=== PATIENT | female | born 1995 | race Hispanic/Latino ===

== ENCOUNTER → 2018-07-28 | Outpatient (CLI) | payer OTHER ==
--- NOTE | 2018-07-28 11:40 | REP ---
OB ULTRASOUND: Real-time sonographic evaluation of the gravid uterus performed. There is a single living intrauterine gestation, estimated gestational age 33 weeks 0 days based on LMP, EDC 09/15/2018. Today's measurements indicate appropriate growth. BPD 85 mm 34 weeks 2 days, 69th percentile HC 307 mm 34 weeks 1 day, 68th percentile AC 303 mm 34 weeks 2 days, 69th percentile FL 61 mm 31 weeks 6 days, 22nd percentile HC/AC ratio 1.01 within normal range. Estimated weight 2231 grams, 56th percentile. Cervix is closed and measures 3.1 cm in length. heart rate 150 beats per minute. Amniotic fluid within normal limits. JANIA 8.5 within normal range of 8.3 - 24.5. S/d ratio 2.78 and RI 0.64 within normal range. SEEN/GROSSLY UNREMARKABLE Lateral ventricles Yes Posterior fossa No Upper lip Yes Four-chamber heart No LVOT Yes RVOT Yes Stomach Yes Cord insertion Yes Three vessel cord Yes Kidneys Yes Bladder Yes Spine No position: Vertex. Placenta: Anterior and grade 2 with no previa or abruption. Please note there is a marginal placental cord insertion. Electronically Signed by Ishmael Laws MD 07/31/2018 01:31 P
== END ==
LOC: M RAD 08:29
PROVIDERS: ATTEND Obstetrics & Gynecology
DX: O09.893 Supervision of other high risk pregnancies, third trimester (principal); O43.123 Velamentous insertion of umbilical cord, third trimester; Z3A.32 32 weeks gestation of pregnancy

== ENCOUNTER 2018-09-06 14:55 | Emergency (ER) | payer OTHER ==
[~2018-09-06] VITALS: Ht 160 cm; Wt 86.9 kg
[~2018-09-06 14:55] MED LIST: ACET-683 PO; COLA100C5 PO; IBUP80TA PO; PRENTAB77 PO
[2018-09-06] MEDS ORDERED: ACETAMINOPHEN TAB 650MG DOSE (2X325MG) PO ONE (16:15)
[2018-09-06 16:25] LABS: HEMATOCRIT 41.6 % (36.0-47.0); HEMOGLOBIN 13.8 g/dl (12.0-15.5); MEAN CORPUSCULAR HEMOGLOBIN 30.5 pg (27.0-33.0); MEAN CORPUSCULAR HGB CONC 33.2 g/dl (32.0-36.5); MEAN CORPUSCULAR VOLUME 91.8 fl (80.0-96.0); PLATELET COUNT, AUTOMATED 333 10^3/uL (150-450); RED BLOOD COUNT 4.53 10^6/uL (4.00-5.40); WHITE BLOOD COUNT 8.2 10^3/uL (4.0-10.0)
[2018-09-06 17:50] LABS: CHLAMYDIA DNA AMPLIFICATION NEGATIVE (NEGATIVE); GC DNA AMPLIFICATION NEGATIVE (NEGATIVE)
[2018-09-06 18:03] VITALS: BP 115/70
--- NOTE | 2018-09-06 18:11 | REP ---
PELVIC ULTRASOUND: Real-time sonographic evaluation of the pelvis was performed utilizing transabdominal and endovaginal technique. The bladder measures 12.2 x 9.4 x 12.3 cm. The uterus measures 13.9 x 6.8 x 8.4 cm. The patient is one week . Endometrial echo complex is heterogenous and thickened measuring 29 mm. There is likely internal blood clot. I can not exclude underlying retained products of conception. Right ovary measures 2.2 x 1.5 x 2.6 cm. Rounded echogenic area 1 cm in diameter could represent a complex follicle or small dermoid. There is no right ovarian torsion. The left ovary could not be visualized. I see no adnexal mass or free fluid. Electronically Signed by Ishmael Laws MD 09/11/2018 08:26 A
== END 2018-09-06 18:17 | disposition home or self-care (01) ==
LOC: M ED 14:55
DX: O90.89 Other complications of the puerperium, not elsewhere classified (principal); N93.8 Other specified abnormal uterine and vaginal bleeding; R10.2 Pelvic and perineal pain

== ENCOUNTER 2021-05-17 14:25 | Emergency (ER) | payer OTHER ==
[~2021-05-17] VITALS: Ht 160 cm; Wt 96.6 kg
[2021-05-17 14:26] VITALS: BP 133/83
== END 2021-05-17 18:18 | disposition left against medical advice (07) ==
LOC: M ED 14:25
DX: Z53.21 Procedure and treatment not carried out due to patient leaving prior to being seen by health care provider (principal)

== ENCOUNTER → 2022-10-14 | Outpatient (CLI) | payer OTHER | LOC: M PLARAD 12:42 | PROVIDERS: ATTEND Nurse Practitioner Primary Care | DX: E22.1 Hyperprolactinemia (principal) ==